=== PATIENT | male | born 2000 | race Hispanic/Latino ===

== ENCOUNTER 2019-04-26 14:56 | Emergency (ER) | payer BC, SELFPAY ==
--- NOTE | 2019-04-26 16:20 | ER ---
Nurse's Notes [facility] Name: Oliver Arenas Age: 19 yrs Sex: Male : 2000 Arrival Date: 04/26/2019 Time: 15:05 Bed 10 Private MD: Diagnosis: Influenza due to certain identified influenza viruses Presentation: 04/26 15:21 Presenting complaint: Patient states: bodyaches, and headache with eye pained described sg as soreness when looking left to right, pt reports normal bowel and bladder patterns, reports eating and drinking fine. Transition of care: patient was not received from another setting of care. Onset of symptoms was April 26, 2019. Risk Assessment: Do you want to hurt yourself or someone else? Patient reports no desire to harm self or others. Initial Sepsis Screen: Does the patient meet any 2 criteria? No. Patient's initial sepsis screen is negative. Does the patient have a suspected source of infection? No. Patient's initial sepsis screen is negative. Care prior to arrival: None. 15:21 Method Of Arrival: Ambulatory sg 15:21 Acuity: MAURICIO 4 sg Historical: - Allergies: 15:22 No Known Allergies; sg - Home Meds: 15:22 None [Active]; sg - PMHx: 15:22 None; sg - PSHx: 15:22 None; sg - Immunization history:: Adult Immunizations up to date. - Social history:: Smoking status: Patient/guardian denies using tobacco. - Ebola Screening: : Patient negative for fever greater than or equal to 101.5 degrees Fahrenheit, and additional compatible Ebola Virus Disease symptoms Patient denies exposure to infectious person Patient denies travel to an Ebola-affected area in the 21 days before illness onset No symptoms or risks identified at this time. Screenin:30 Abuse screen: Denies threats or abuse. Denies injuries from another. Nutritional iw screening: No deficits noted. Tuberculosis screening: No symptoms or risk factors identified. Fall Risk None identified. Assessment: 15:22 General: Appears in no apparent distress. well groomed, well developed, well nourished, sg Behavior is calm, cooperative, appropriate for age, drowsy. Neuro: Level of Consciousness is awake, alert, obeys commands, Oriented to person, place, time. Respiratory: Airway is patent Respiratory effort is even, unlabored, Respiratory pattern is regular, symmetrical. GI: No signs and/or symptoms were reported involving the gastrointestinal system. : No signs and/or symptoms were reported regarding the genitourinary system. EENT: Reports pain bilateral eyes with movement. Derm: Skin is pink, warm \T\ dry. Musculoskeletal: Circulation, motion, and sensation intact. Range of motion: intact in all extremities, pt reports body aches. Vital Signs: 15:23 BP 118 / 72; Pulse 77; Resp 18; Temp 98.9; Pulse Ox 100% on R/A; Pain 6/10; sg ED Course: 15:05 Patient arrived in ED. am2 15:17 Arm band placed on. sg 15:22 Triage completed. sg 15:22 Patient has correct armband on for positive identification. iw 15:25 Flu and/or RSV swab sent to lab. 16:00 Roberto Roberts PA is PHCP. [facility] 16:00 Harry Neves MD is Attending Physician. [facility] 16:05 Kerrie Vasquez RN is Primary Nurse. iw 16:32 No provider procedures requiring assistance completed. Patient did not have IV access iw during this emergency room visit. Administered Medications: No medications were administered Outcome: 16:19 Discharge ordered by . [facility] 16:32 Discharged to home ambulatory, with family. iw 16:32 Condition: good 16:32 Discharge instructions given to family, Instructed on discharge instructions, follow up and referral plans. medication usage, Demonstrated understanding of instructions, follow-up care, medications, Prescriptions given X 1. 16:33 Patient left the ED. iw Signatures: Usman Grossman RN RN Roberto Roberts PA PA jmm Williams, Irene, RN RN Donna Lion am
--- NOTE | 2019-04-26 16:20 | EDPHYS ---
Physician Documentation [facility] Name: Oliver Arenas Age: 19 yrs Sex: Male : 2000 Arrival Date: 04/26/2019 Time: 15:05 Bed 10 Private MD: ZAC Physician Harry eNves HPI: 04/26 16:20 This 19 yrs old Male presents to ER via Ambulatory with complaints of Flu jmm Symptoms. 16:20 The patient or guardian reports cough. Onset: The symptoms/episode began/occurred jmm gradually, 2 day(s) ago. Modifying factors: The symptoms are alleviated by nothing. the symptoms are aggravated by nothing. Associated signs and symptoms: Pertinent positives: fever, sore throat. Patient denies vomiting or diarrhea. . Historical: - Allergies: 15:22 No Known Allergies; sg - Home Meds: 15:22 None [Active]; sg - PMHx: 15:22 None; sg - PSHx: 15:22 None; sg - Immunization history:: Adult Immunizations up to date. - Social history:: Smoking status: Patient/guardian denies using tobacco. - Ebola Screening: : Patient negative for fever greater than or equal to 101.5 degrees Fahrenheit, and additional compatible Ebola Virus Disease symptoms Patient denies exposure to infectious person Patient denies travel to an Ebola-affected area in the 21 days before illness onset No symptoms or risks identified at this time. ROS: 16:20 Constitutional: Positive for body aches, chills, fatigue, fever. jmm 16:20 ENT: Positive for sore throat. 16:20 Respiratory: Positive for cough. 16:20 All other systems are negative. Exam: 16:20 Constitutional: This is a well developed, well nourished patient who is awake, alert, jmm and in no acute distress. Head/Face: atraumatic. Eyes: EOMI, no conjunctival erythema appreciated 16:20 Neck: Trachea midline, Supple Chest/axilla: Normal chest wall appearance and motion. 16:20 ENT: Posterior pharynx: erythema, that is mild. 16:20 Cardiovascular: Rate: normal, Rhythm: regular, Pulses: no pulse deficits are appreciated. 16:20 Respiratory: the patient does not display signs of respiratory distress, Respirations: normal, Breath sounds: are clear throughout. 16:20 Abdomen/GI: Inspection: abdomen appears normal, Bowel sounds: normal, Palpation: abdomen is soft and non-tender, in all quadrants. 16:20 Musculoskeletal/extremity: ROM: intact in all extremities. 16:20 Skin: Appearance: Color: normal in color. 16:20 Neuro: Orientation: is normal, Mentation: is normal, Memory: is normal. 16:20 Psych: Behavior/mood is pleasant, cooperative. Vital Signs: 15:23 BP 118 / 72; Pulse 77; Resp 18; Temp 98.9; Pulse Ox 100% on R/A; Pain 6/10; sg MDM: 16:15 Patient medically screened. [facility] 16:17 Data reviewed: vital signs, nurses notes. Counseling: I had a detailed discussion with megan the patient and/or guardian regarding: the historical points, exam findings, and any diagnostic results supporting the discharge/admit diagnosis, lab results, the need for outpatient follow up, to return to the emergency department if symptoms worsen or persist or if there are any questions or concerns that arise at home. ED course: Patient is alert and non toxic in appearance in the ED. Patient advised to increased fluids. Patient otherwise given strict return precautions. Patient understood and agrees with the plan of care. . 04/26 15:23 Order name: Flu; Complete Time: 16:17 sg Administered Medications: No medications were administered Disposition: 16:40 Co-signature as Attending Physician, Harry Neves MD I agree with the assessment and tomasa plan of care. Disposition: 04/26/19 16:19 Discharged to Home. Impression: Influenza due to certain identified influenza viruses. - Condition is Stable. - Discharge Instructions: Influenza, Adult. - Prescriptions for Tamiflu 75 mg Oral Capsule - take 1 tablet by ORAL route every 12 hours for 5 days; 10 tablet. - Work release form, Medication Reconciliation Form, Thank You Letter, Antibiotic Education, Prescription Opioid Use form. - Follow up: Private Physician; When: 2 - 3 days; Reason: Recheck today's complaints, Continuance of care, Re-evaluation by your physician. Signatures: Dispatcher [employer] EDUsman Proctor RN RN sg Anderson, Corey, MD MD cha Mickail, Joel, PA PA jmm Williams, Irene, RN RN iw Corrections: (The following items were deleted from the chart) 16:33 16:19 04/26/2019 16:19 Discharged to Home. Impression: Influenza due to certain iw identified influenza viruses. Condition is Stable. Forms are Medication Reconciliation Form, Thank You Letter, Antibiotic Education, Prescription Opioid Use. Follow up: Private Physician; When: 2 - 3 days; Reason: Recheck today's complaints, Continuance of care, Re-evaluation by your physician. megan
[2019-04-26 16:39] VITALS: BP 118/72; TEMP 98.9; O2SAT 100
== END 2019-04-26 16:33 | disposition home or self-care (01) ==
LOC: ER 14:56
DX: J10.1 Influenza due to other identified influenza virus with other respiratory manifestations (principal)
CPT/HCPCS: 87804; 99283

== ENCOUNTER 2020-07-12 13:58 | Emergency (ER) | payer SELFPAY ==
--- OUTSIDE RECORDS SUMMARY | 2020-07-12 14:01 | XMS REPORT | Continuity of Care Document ---
:2000 Author Organization [facility] t Address [address] [place] [address] Care Team Providers Name Role Phone Sandra GENERAL STUDIES PROGRAM CHAIR Attending Clinician Pob1, Care Clinic Attending Clinician Unavailable Problems This patient has no known problems. Allergies, Adverse Reactions, Alerts This patient has no known allergies or adverse reactions. Medications This patient has no known medications. Procedures This patient has no known procedures. Encounters Start End Encounter Admission Attending Care Care Encounter Source Date/Time Date/Time Type Type Clinicians Facility Department ID 2019-07-28 2019-07-28 Letter BHARGAV Flores [id number] 00:00:00 00:00:00 (Out) Romi ADAMES [id number] [place] [id number] 2019-07-27 2019-07-27 Telephone BHARGAV Flores [id number] 00:00:00 00:00:00 oRmi ADAMES [id number] [facility] [id number] 2019-07-27 2019-07-27 Telephone BHARGAV Flores [id number] 00:00:00 00:00:00 Romi ADAMES [id number] [facility] [id number] 2019-07-26 2019-07-26 Urgent Pob1, Acute [facility] [id number] 08:10:18 08:41:35 [facility] [id number] [place] [id number] [place] [phone] nal 044 [address] One Results This patient has no known results.
[2020-07-12 15:48] LABS: SARS-COV-2 RT PCR NEGATIVE (NEGATIVE)
--- NOTE | 2020-07-12 17:01 | ER ---
Nurse's Notes [facility] Name: Oliver Arenas Age: 20 yrs Sex: Male : 2000 Arrival Date: 07/12/2020 Time: 14:01 Bed 13 Private MD: Diagnosis: Acute nasopharyngitis [common cold] Presentation: 07/12 14:07 Chief complaint: Patient states: NARANJO, weak, fatigue, nasal congestion for 2 days. ll1 Subjective fever at home. Coronavirus screen: Client denies travel out of the [place] in the last 14 days. chills, congestion, cough unrelated to allergies, diarrhea, fatigue, fever, headache, nausea, sore throat, Client presents with at least one sign or symptom that may indicate coronavirus-19. Standard/surgical mask placed on the client. Ebola Screen: Patient denies travel to an Ebola-affected area in the 21 days before illness onset. Initial Sepsis Screen: Does the patient meet any 2 criteria? HR > 90 bpm. No. Patient's initial sepsis screen is negative. Does the patient have a suspected source of infection? Yes: Productive cough/pneumonia. Risk Assessment: Do you want to hurt yourself or someone else? Patient reports no desire to harm self or others. Onset of symptoms was July 11, 2020. 14:07 Method Of Arrival: Ambulatory ll1 14:07 Acuity: MAURICIO 4 ll1 Historical: - Allergies: 14:06 No Known Allergies; ll1 - PMHx: 14:06 None; ll1 - PSHx: 14:06 None; ll1 - Immunization history:: Flu vaccine is not up to date. - Social history:: Smoking status: Reported history of juuling and/or vaping. Patient denies any tobacco usage or history of. Screenin:28 Abuse screen: Denies threats or abuse. Nutritional screening: No deficits noted. vg1 Tuberculosis screening: No symptoms or risk factors identified. Fall Risk No fall in past 12 months (0 pts). No secondary diagnosis (0 pts). No IV (0 pts). Ambulatory Aid- None/Bed Rest/Nurse Assist (0 pts). Gait- Normal/Bed Rest/Wheelchair (0 pts) Mental Status- Oriented to own ability (0 pts). Total Pickens Fall Scale indicates No Risk (0-24 pts). Assessment: 14:26 General: Appears in no apparent distress. comfortable, Behavior is calm, cooperative. vg1 Pain: Complains of pain in c/o headache Pain currently is 5 out of 10 on a pain scale. Pain began 2-3 days ago. Neuro: Level of Consciousness is awake, alert, obeys commands, Oriented to person, place, time, situation. Cardiovascular: Patient's skin is warm and dry. Respiratory: Airway is patent Respiratory effort is even, unlabored, Breath sounds are clear bilaterally. Denies shortness of breath Parent/caregiver reports the patient having cough that is non-productive. GI: Reports diarrhea, Patient currently denies nausea, vomiting. : No signs and/or symptoms were reported regarding the genitourinary system. EENT: No signs and/or symptoms were reported regarding the EENT system. Derm: Skin is intact, is healthy with good turgor. Musculoskeletal: Circulation, motion, and sensation intact. 15:23 Reassessment: Patient appears in no apparent distress at this time. No changes from vg1 previously documented assessment. Patient and/or family updated on plan of care and expected duration. Pain level reassessed. Patient is alert, oriented x 3, equal unlabored respirations, skin warm/dry/pink. 16:29 Reassessment: Patient appears in no apparent distress at this time. Patient and/or vg1 family updated on plan of care and expected duration. Pain level reassessed. Patient is alert, oriented x 3, equal unlabored respirations, skin warm/dry/pink. Vital Signs: 14:07 BP 131 / 79; Pulse 93; Resp 17; Temp 98.2; Pulse Ox 96% ; Height 5 ft. 7 in. (170.18 ll1 cm); Pain 5/10; 14:27 BP 125 / 79; Pulse 80; Resp 16; Pulse Ox 98% on R/A; vg1 15:00 BP 137 / 85; Pulse 85; Resp 16; Pulse Ox 99% on R/A; vg1 16:00 BP 120 / 73; Pulse 70; Resp 16; Pulse Ox 99% on R/A; vg1 ED Course: 14:01 Patient arrived in ED. mr 14:07 Arm band placed on. ll1 14:09 Triage completed. ll1 14:10 Kapil Turner NP is PHCP. pm1 14:10 Aldo Ruelas MD is Attending Physician. pm1 14:12 Jane Pillai, RN is Primary Nurse. vg1 14:28 Patient has correct armband on for positive identification. Bed in low position. Call vg1 light in reach. Side rails up X 1. 14:51 COVID swab sent to lab. Flu and/or RSV swab sent to lab. Strep swab sent to lab. jp3 17:10 No provider procedures requiring assistance completed. Patient did not have IV access vg1 during this emergency room visit. Administered Medications: No medications were administered Outcome: 17:00 Discharge ordered by MD. pm1 17:10 Discharged to home ambulatory. vg1 17:10 Condition: stable 17:10 Discharge instructions given to patient, Instructed on discharge instructions, follow up and referral plans. Demonstrated understanding of instructions, follow-up care. 17:11 Patient left the ED. vg1 Signatures: Yue Mcmahon mr TurnerKapil, FLIGHT CONTROL MANAGER FLIGHT CONTROL MANAGER pm1 Sukhjinder Quiros jp3 Jane Pillai, RN RN vg1 Jose Manuel Mcgill RN RN 1
--- NOTE | 2020-07-12 17:01 | EDPHYS ---
Physician Documentation [facility] Name: Oliver Arenas Age: 20 yrs Sex: Male : 2000 Arrival Date: 07/12/2020 Time: 14:01 Bed 13 Private MD: ED Physician Aldo Ruelas HPI: 07/12 14:47 This 20 yrs old Male presents to ER via Ambulatory with complaints of pm1 Headache, Flu Symptoms. 14:47 The patient or guardian reports cough, with no sputum, runny nose, headache. pm1 14:47 Onset: The symptoms/episode began/occurred 2 day(s) ago. Severity of symptoms: in the pm1 emergency department the symptoms are unchanged. Modifying factors: The symptoms are alleviated by OTC cold preparation, the symptoms are aggravated by nothing. Associated signs and symptoms: Pertinent negatives: chest pain, diarrhea, fever, sore throat, vomiting, shortness of breath. The patient has not experienced similar symptoms in the past. The patient has not recently seen a physician. . Historical: - Allergies: 14:06 No Known Allergies; ll1 - PMHx: 14:06 None; ll1 - PSHx: 14:06 None; ll1 - Immunization history:: Flu vaccine is not up to date. - Social history:: Smoking status: Reported history of juuling and/or vaping. Patient denies any tobacco usage or history of. ROS: 14:47 Neck: Negative for injury, pain, and swelling, Cardiovascular: Negative for chest pain, pm1 palpitations, and edema. 14:47 Abdomen/GI: Negative for abdominal pain, nausea, vomiting, diarrhea, and constipation, Back: Negative for injury and pain, MS/Extremity: Negative for injury and deformity, Skin: Negative for injury, rash, and discoloration. 14:47 Constitutional: Positive for body aches, fatigue, Negative for poor PO intake. 14:47 ENT: Positive for rhinorrhea, Negative for ear pain, sore throat. 14:47 Respiratory: Positive for cough, Negative for shortness of breath, sputum production, wheezing. 14:47 Neuro: Positive for headache, Negative for numbness, tingling, weakness. Exam: 14:47 Constitutional: This is a well developed, well nourished patient who is awake, alert, pm1 and in no acute distress. Head/Face: Normocephalic, atraumatic. 14:47 Neck: Trachea midline, no thyromegaly or masses palpated, and no cervical lymphadenopathy. Supple, full range of motion without nuchal rigidity, or vertebral point tenderness. No Meningismus. 14:47 Back: No spinal tenderness. No costovertebral tenderness. Full range of motion. Skin: Warm, dry with normal turgor. Normal color with no rashes, no lesions, and no evidence of cellulitis. MS/ Extremity: Pulses equal, no cyanosis. Neurovascular intact. Full, normal range of motion. 14:47 ENT: Exam is negative for acute changes, External ear(s): are unremarkable, Ear canal(s): are normal, TM's: are normal, Posterior pharynx: is normal, airway is patent, no erythema, no exudate, no peritonsilar mass. 14:47 Cardiovascular: Exam negative for acute changes, Rate: normal, Rhythm: regular, Pulses: no pulse deficits are appreciated, Heart sounds: normal. 14:47 Respiratory: Exam negative for acute changes, respiratory distress, shortness of breath, Breath sounds: are clear throughout. 14:47 Neuro: Exam negative for acute changes, Orientation: is normal, Mentation: is normal, Motor: is normal, moves all fours, Gait: is steady, at a normal pace, without difficulty. Vital Signs: 14:07 BP 131 / 79; Pulse 93; Resp 17; Temp 98.2; Pulse Ox 96% ; Height 5 ft. 7 in. (170.18 ll1 cm); Pain 5/10; 14:27 BP 125 / 79; Pulse 80; Resp 16; Pulse Ox 98% on R/A; vg1 15:00 BP 137 / 85; Pulse 85; Resp 16; Pulse Ox 99% on R/A; vg1 16:00 BP 120 / 73; Pulse 70; Resp 16; Pulse Ox 99% on R/A; vg1 MDM: 14:17 Patient medically screened. pm1 16:55 Data reviewed: vital signs. Data interpreted: Pulse oximetry: on room air is 99 %. pm1 Interpretation: normal. Counseling: I had a detailed discussion with the patient and/or guardian regarding: the historical points, exam findings, and any diagnostic results supporting the discharge/admit diagnosis, lab results, the need for outpatient follow up. 07/12 14:34 Order name: Flu pm1 07/12 14:34 Order name: Strep pm1 07/12 14:34 Order name: COVID-19 : Document "Date of Symptom Onset" if Symptomatic. pm1 07/12 14:35 Order name: Group A Streptococcus Rapid Sc; Complete Time: 15:45 EDMS 07/12 14:34 Order name: Droplet/Contact Precautions; Complete Time: 15:04 pm1 07/12 14:34 Order name: Labs collected and sent; Complete Time: 15:04 pm1 07/12 14:34 Order name: O2 Per Protocol; Complete Time: 15:04 pm1 07/12 15:24 Order name: Throat Culture EDMS 07/12 15:48 Order name: COVID-19/FLU A+B; Complete Time: 15:52 EDMS Administered Medications: No medications were administered Disposition: 18:19 Co-signature as Attending Physician, Aldo Ruelas MD. rn Disposition: 07/12/20 17:00 Discharged to Home. Impression: Acute nasopharyngitis [common cold]. - Condition is Stable. - Discharge Instructions: Antibiotic Resistance, Upper Respiratory Infection, Adult, Viral Respiratory Infection. - Medication Reconciliation Form, Thank You Letter, Antibiotic Education, Prescription Opioid Use, Work release form form. - Follow up: Emergency Department; When: As needed; Reason: Worsening of condition. Follow up: Private Physician; When: 2 - 3 days; Reason: Recheck today's complaints, Continuance of care, Re-evaluation by your physician. - Problem is new. - Symptoms have improved. Signatures: Dispatcher [employer] [facility] Aldo Ruelas MD MD rn Marinas, Patrick, PROJECT MANAGEMENT INSTRUCTOR PROJECT MANAGEMENT INSTRUCTOR pm1 Jane Pillai RN RN vg1 Jose Manuel Mcgill RN RN ll1 Corrections: (The following items were deleted from the chart) 14:57 14:34 Influenza Screen (A ordered. [facility] EDNY 14:57 14:35 CORONAVIRUS ordered. [facility] 17:11 17:00 07/12/2020 17:00 Discharged to Home. Impression: Acute nasopharyngitis [common vg1 cold]. Condition is Stable. Forms are Medication Reconciliation Form, Thank You Letter, Antibiotic Education, Prescription Opioid Use. Follow up: Emergency Department; When: As needed; Reason: Worsening of condition. Follow up: Private Physician; When: 2 - 3 days; Reason: Recheck today's complaints, Continuance of care, Re-evaluation by your physician. Problem is new. Symptoms have improved. pm1
[2020-07-13 01:09] VITALS: TEMP 98.2
[2020-07-13 01:12] VITALS: O2SAT 99
[2020-07-13 01:14] VITALS: BP 120/73
== END 2020-07-12 17:11 | disposition home or self-care (01) ==
LOC: ER 13:58
DX: J00 Acute nasopharyngitis [common cold] (principal); Z20.822 Contact with and (suspected) exposure to COVID-19
CPT/HCPCS: 0240U; 87070; 87081; 99283

== ENCOUNTER 2020-12-19 14:16 | Emergency (ER) | payer SELFPAY ==
--- OUTSIDE RECORDS SUMMARY | 2020-12-19 14:18 | XMS REPORT | Continuity of Care Document ---
:2000 Author Organization [facility] t Address [address] [place] [address] [place] [address] Care Team Providers Name Role Phone Sandra PRIMARY EDUCATION PROFESSOR Attending Clinician Pob1, Care Clinic Attending Clinician [...] ID 2019-07-28 2019-07-28 Letter BHARGAV Flores [id number] 00:00:00 00:00:00 (Out) Romi ADAMES [id number] [place] [id number] 2019-07-27 2019-07-27 Telephone BHARGAV Flores [id number] 00:00:00 00:00:00 Romi ADAMES [id number] [facility] [id number] 2019-07-27 2019-07-27 Telephone BHARGAV Flores [id number] 00:00:00 00:00:00 Romi ADAMES [id number] 2019-07-26 2019-07-26 Urgent Pob1, Acute [facility] [id number] 08:10:18 08:41:35 [facility] [id number] [place] [id number] [place] [phone] nal 044 [address] One Results This patient has no known results.
--- NOTE | 2020-12-19 15:54 | ER ---
Nurse's Notes [facility] Name: Oliver Arenas Age: 20 yrs Sex: Male : 2000 Arrival Date: 12/19/2020 Time: 14:22 Bed Waiting Private MD: Diagnosis: Coronavirus infection, unspecified Presentation: 12/19 14:25 Chief complaint: Patient states: no smell that began 1-2 weeks ago. Coronavirus screen: aa5 loss of taste or smell. Ebola Screen: Patient negative for fever greater than or equal to 101.5 degrees Fahrenheit, and additional compatible Ebola Virus Disease symptoms. Initial Sepsis Screen: Does the patient meet any 2 criteria? No. Patient's initial sepsis screen is negative. Does the patient have a suspected source of infection? No. Patient's initial sepsis screen is negative. Risk Assessment: Do you want to hurt yourself or someone else? Patient reports no desire to harm self or others. Onset of symptoms was 2020. 14:25 Method Of Arrival: Ambulatory aa5 14:25 Acuity: MAURICIO 4 aa5 Historical: - Allergies: 14:29 No Known Allergies; aa5 - PMHx: 14:29 None; aa5 - PSHx: 14:29 None; aa5 - Immunization history:: Client reports having NOT received the Covid vaccine. - Social history:: Smoking status: Patient denies any tobacco usage or history of. Vital Signs: 14:25 BP 124 / 78; Pulse 76; Resp 16 S; Temp 98.2(O); Pulse Ox 99% on R/A; Weight 83.01 kg aa5 (R); Height 5 ft. 7 in. (170.18 cm) (R); 14:25 Body Mass Index 28.66 (83.01 kg, 170.18 cm) aa5 ED Course: 14:22 Patient arrived in ED. as 14:22 [facility]C [facility] kb 14:22 Mitchell Jason MD is Attending Physician. kb 14:25 Arm band placed on. aa5 14:26 Triage completed. aa5 Administered Medications: No medications were administered Outcome: 15:53 Discharge ordered by . kb 16:11 Patient left the ED. kb Signatures: Aye Glass FNP-C FNP-Ckb Martinez Rosemary as Thomason, Noreen, RN RN aa5 Corrections: (The following items were deleted from the chart) 14:30 14:29 Allergies: Aspirin; aa5 aa5
--- NOTE | 2020-12-19 15:55 | EDPHYS ---
Physician Documentation [facility] Name: Oliver Arenas Age: 20 yrs Sex: Male : 2000 Arrival Date: 12/19/2020 Time: 14:22 Bed Waiting Private MD: ED Physician Mitchell Jason HPI: 12/19 15:00 This 20 yrs old Male presents to ER via Ambulatory with complaints of r/o kb covid. 15:00 The patient or guardian reports loss of smell. Onset: The symptoms/episode kb began/occurred 1 week(s) ago. Severity of symptoms: At their worst the symptoms were mild, in the emergency department the symptoms are unchanged. Modifying factors: The symptoms are alleviated by nothing, the symptoms are aggravated by nothing. Associated signs and symptoms: The patient has no apparent associated signs or symptoms. The patient has not experienced similar symptoms in the past. The patient has not recently seen a physician. Pt reports loss of smell for a week or two. Denies any other symptoms. States brother lost his smell too so they came to get tested. Historical: - Allergies: 14:29 No Known Allergies; aa5 - PMHx: 14:29 None; aa5 - PSHx: 14:29 None; aa5 - Immunization history:: Client reports having NOT received the Covid vaccine. - Social history:: Smoking status: Patient denies any tobacco usage or history of. ROS: 14:59 Constitutional: Negative for fever, chills, and weight loss. kb 14:59 ENT: Positive for loss of smell. 14:59 All other systems are negative. Exam: 15:00 Constitutional: This is a well developed, well nourished patient who is awake, alert, kb and in no acute distress. Head/Face: Normocephalic, atraumatic. ENT: Moist Mucous membranes Respiratory: Respirations even and unlabored. No increased work of breathing, no retractions or nasal flaring. Skin: Warm, dry with normal turgor. Normal color. MS/ Extremity: Pulses equal, no cyanosis. Neurovascular intact. Full, normal range of motion. Neuro: Awake and alert, GCS 15, oriented to person, place, time, and situation. Moves all extremities. Normal gait. Psych: Awake, alert, with orientation to person, place and time. Behavior, mood, and affect are within normal limits. Vital Signs: 14:25 BP 124 / 78; Pulse 76; Resp 16 S; Temp 98.2(O); Pulse Ox 99% on R/A; Weight 83.01 kg aa5 (R); Height 5 ft. 7 in. (170.18 cm) (R); 14:25 Body Mass Index 28.66 (83.01 kg, 170.18 cm) aa5 MDM: 14:22 Patient medically screened. kb 14:58 Data reviewed: vital signs, nurses notes. Data interpreted: Pulse oximetry: on room air kb is 99 %. Interpretation: normal. Counseling: I had a detailed discussion with the patient and/or guardian regarding: the historical points, exam findings, and any diagnostic results supporting the discharge/admit diagnosis, lab results, the need for outpatient follow up, a family practitioner, to return to the emergency department if symptoms worsen or persist or if there are any questions or concerns that arise at home. 12/19 15:44 Order name: SARS-COV-2 RT PCR; Complete Time: 15:53 EDMS Administered Medications: No medications were administered Disposition Summary: 12/19/20 15:53 Discharge Ordered Location: Home kb Condition: Stable kb Diagnosis - Coronavirus infection, unspecified kb Followup: kb - With: Emergency Department - When: As needed - Reason: Worsening of condition Followup: kb - With: Private Physician - When: 2 - 3 days - Reason: Recheck today's complaints, Continuance of care, Re-evaluation by your physician Discharge Instructions: - Discharge Summary Sheet kb - Viral Respiratory Infection, [id number] kb - COVID-19 kb - COVID-19 Frequently Asked Questions kb Forms: - Medication Reconciliation Form kb - Thank You Letter kb - Antibiotic Education kb - Prescription Opioid Use kb Signatures: Dispatcher [employer] EDMS Aye Glass, Noreen Hernandez, RN RN aa5 Corrections: (The following items were deleted from the chart) 14:30 14:29 Allergies: Aspirin; aa5 aa5 14:45 14:28 CORONAVIRUS+Z ordered. EDMS EDMS
[2020-12-19 16:22] VITALS: BP 124/78; TEMP 98.2; O2SAT 99
== END 2020-12-19 16:11 | disposition home or self-care (01) ==
LOC: ER 14:16
DX: U07.1 COVID-19 (principal)
CPT/HCPCS: 99281; U0003

== ENCOUNTER 2021-04-21 09:25 | Emergency (ER) | payer SELFPAY ==
--- NOTE | 2021-04-21 11:11 | EDPHYS ---
Physician Documentation [facility] Name: Oliver Aernas Age: 21 yrs Sex: Male : 2000 Arrival Date: 04/21/2021 Time: 09:26 Bed Waiting Private MD: ED Physician Aldo Ruelas HPI: 04/21 10:23 This 21 yrs old Male presents to ER via Ambulatory with complaints of r/o kb covid, loss of smell. 10:23 Pt reports loss of smell since Tuesday. Denies any other symptoms. Onset: The kb symptoms/episode began/occurred 4 day(s) ago. Severity of symptoms: At their worst the symptoms were mild in the emergency department the symptoms are unchanged. The patient has not experienced similar symptoms in the past. The patient has not recently seen a physician. Historical: - Allergies: 09:41 No Known Allergies; ll1 - PMHx: 09:41 None; ll1 - PSHx: 09:41 None; ll1 - Immunization history:: Client reports having NOT received the Covid vaccine. - Social history:: Smoking status: Reported history of juuling and/or vaping. ROS: 10:23 Constitutional: Negative for fever, chills, and weight loss. kb 10:23 ENT: Positive for loss of smell. 10:23 All other systems are negative. Exam: 10:23 Constitutional: This is a well developed, well nourished patient who is awake, alert, kb and in no acute distress. Head/Face: Normocephalic, atraumatic. ENT: Moist Mucous membranes Respiratory: Respirations even and unlabored. No increased work of breathing. Talking in full sentences Skin: Warm, dry with normal turgor. Normal color. MS/ Extremity: Pulses equal, no cyanosis. Neurovascular intact. Full, normal range of motion. Neuro: Awake and alert, GCS 15, oriented to person, place, time, and situation. Moves all extremities. Normal gait. Psych: Awake, alert, with orientation to person, place and time. Behavior, mood, and affect are within normal limits. Vital Signs: 09:40 BP 127 / 72; Pulse 60; Resp 17; Temp 97.8; Pulse Ox 100% ; Weight 86.18 kg; Height 5 ll1 ft. 7 in. (170.18 cm); Pain 0/10; 09:40 Body Mass Index 29.76 (86.18 kg, 170.18 cm) ll1 MDM: 09:40 Patient medically screened. 10:24 Data reviewed: vital signs, nurses notes. Data interpreted: Pulse oximetry: on room air kb is 100 %. Interpretation: normal. Counseling: I had a detailed discussion with the patient and/or guardian regarding: the historical points, exam findings, and any diagnostic results supporting the discharge/admit diagnosis, lab results, the need for outpatient follow up, a family practitioner, to return to the emergency department if symptoms worsen or persist or if there are any questions or concerns that arise at home. 04/21 09:41 Order name: COVID-19 SARS RT PCR (Document "Date of Onset" if Symptomatic) 04/21 09:41 Order name: SARS-COV-2 RT PCR; Complete Time: 11:09 EDMS Administered Medications: No medications were administered Disposition: 12:07 Co-signature as Attending Physician, Aldo Ruelas MD. rn Disposition Summary: 04/21/21 11:10 Discharge Ordered Location: Home kb Condition: Stable kb Diagnosis - Other disturbances of smell and taste kb Followup: kb - With: Emergency Department - When: As needed - Reason: Worsening of condition Followup: kb - With: Private Physician - When: 2 - 3 days - Reason: Recheck today's complaints, Continuance of care, Re-evaluation by your physician Discharge Instructions: - Discharge Summary Sheet ll1 Forms: - Medication Reconciliation Form kb - Thank You Letter kb - Antibiotic Education kb - Prescription Opioid Use kb - Work release form ll1 Signatures: Dispatcher [employer] EDAye Leavitt, HIRAL-Jefe BLACKMAN-Aldo Urias MD MD rn Lewis, Lynsay, RN RN ll1
--- NOTE | 2021-04-21 11:11 | ER ---
Nurse's Notes [facility] Name: Oliver Arenas Age: 21 yrs Sex: Male : 2000 Arrival Date: 04/21/2021 Time: 09:26 Bed Waiting Private MD: Diagnosis: Other disturbances of smell and taste Presentation: 04/21 09:40 Chief complaint: Patient states: Loss of smell since Sat. Coronavirus screen: Vaccine ll1 status: Patient reports being unvaccinated. Client denies travel out of the [place] in the last 14 days. At this time, the client does not indicate any symptoms associated with coronavirus-19. Ebola Screen: Patient denies travel to an Ebola-affected area in the 21 days before illness onset. Initial Sepsis Screen: Does the patient meet any 2 criteria? No. Patient's initial sepsis screen is negative. Does the patient have a suspected source of infection? No. Patient's initial sepsis screen is negative. Risk Assessment: Do you want to hurt yourself or someone else? Patient reports no desire to harm self or others. Onset of symptoms was April 18, 2021. 09:40 Method Of Arrival: Ambulatory ll1 09:40 Acuity: MAURICIO 3 ll1 Triage Assessment: 09:42 General: Appears in no apparent distress. Behavior is calm, cooperative, appropriate ll1 for age. Pain: Denies pain. EENT: Reports loss of smell. Historical: - Allergies: 09:41 No Known Allergies; ll1 - PMHx: 09:41 None; ll1 - PSHx: 09:41 None; ll1 - Immunization history:: Client reports having NOT received the Covid vaccine. - Social history:: Smoking status: Reported history of juuling and/or vaping. Screenin:42 Abuse screen: Denies threats or abuse. Nutritional screening: No deficits noted. ll1 Tuberculosis screening: No symptoms or risk factors identified. 11:30 Fall Risk Total Pickens Fall Scale indicates No Risk (0-24 pts). ll1 Assessment: 10:40 Reassessment: No changes from previously documented assessment. Patient and/or family ll1 updated on plan of care and expected duration. Pain level reassessed. Patient is alert, oriented x 3, equal unlabored respirations, skin warm/dry/pink. 11:35 Reassessment: No changes from previously documented assessment. Patient and/or family ll1 updated on plan of care and expected duration. Pain level reassessed. Patient is alert, oriented x 3, equal unlabored respirations, skin warm/dry/pink. Vital Signs: 09:40 BP 127 / 72; Pulse 60; Resp 17; Temp 97.8; Pulse Ox 100% ; Weight 86.18 kg; Height 5 ll1 ft. 7 in. (170.18 cm); Pain 0/10; 09:40 Body Mass Index 29.76 (86.18 kg, 170.18 cm) ll1 ED Course: 09:26 Patient arrived in ED. am2 09:30 Aye Glass FNP-C [facility] kb 09:30 Aldo Ruelas MD is Attending Physician. kb 09:41 Triage completed. ll1 09:41 Arm band placed on. ll1 11:37 Patient has correct armband on for positive identification. Cardiac monitoring not ll1 applicable on this patient. 11:37 No provider procedures requiring assistance completed. Patient did not have IV access ll1 during this emergency room visit. Administered Medications: No medications were administered Outcome: 11:10 Discharge ordered by MD. kb 11:37 Patient left the ED. ll1 11:37 Discharged to home ambulatory. ll1 11:37 Condition: stable 11:37 Discharge instructions given to patient, Instructed on discharge instructions, follow up and referral plans. Demonstrated understanding of instructions, follow-up care. Signatures: Aye Glass FNP-C FNP-Ckb Moreno, Amanda am2 Jose Manuel Mcgill RN RN ll1 Corrections: (The following items were deleted from the chart) 09:41 09:40 Pulse 60bpm; Resp 17bpm; Pulse Ox 100%; Temp 97.8F; 86.18 kg; Height 5 ft. 7 in.; ll1 BMI: 29.7; Pain 0/10; ll1
[2021-04-21 11:48] VITALS: BP 127/72; TEMP 97.8; O2SAT 100
== END 2021-04-21 11:37 | disposition home or self-care (01) ==
LOC: ER 09:25
DX: R43.8 Other disturbances of smell and taste (principal); Z20.822 Contact with and (suspected) exposure to COVID-19
CPT/HCPCS: 99281; U0003